=== PATIENT | male | born 1980 | race Two or more races ===

== ENCOUNTER 2019-05-26 22:26 | Emergency (ER) | payer SELFPAY ==
[~2019-05-26] VITALS: Ht 180.3 cm; Wt 107.0 kg
[2019-05-26] MEDS ORDERED: ONDANSETRON HCL/PF 4 MG/2 ML VIAL IM ONE (23:00)
[2019-05-26] MEDS ORDERED: ONDANSETRON HCL/PF 4 MG/2 ML VIAL ONE (23:05)
--- NOTE | 2019-05-26 23:26 | NUR ---
ALBERT AND COWORKER TO ER BED 11. INTOXICATED. PER REPORTS, PT WAS IN HIS WORK HOLIDAY DEMOCRAT AND HAVE BEEN DRINKING. PT IS NOT A DRINKER USUALLY. PT NOTED X 1 EIPOSE OF VOMMITING. MD WAS AT BEDSIDE FOR EVAL. ORDERS RECEIVED, NOTED AND CARRIED OUT. SISTER AT BEDSIDE
--- NOTE | 2019-05-27 00:41 | NUR ---
PT IN BED SLEEPING. SITTER AT BEDSIDE
--- NOTE | 2019-05-27 03:17 | NUR ---
PT IN BED SLEEPING, ARROUSABLE, STILL INTOXICATED AND GIVEN WATER.
--- NOTE | 2019-05-27 05:06 | NUR ---
SISTER PICKED UP PT
--- NOTE | 2019-05-27 05:07 | NUR ---
Patient discharged to home in stable condition. Written and verbal after care instructions given. Patient verbalizes understanding of instruction. Pt ambulatory with a steady gait
[2019-05-27 05:48] VITALS: BP 123/91
== END 2019-05-27 05:49 | disposition home or self-care (01) ==
LOC: ER 22:26
DX: F10.129 Alcohol abuse with intoxication, unspecified (principal); Y90.9 Presence of alcohol in blood, level not specified
CPT/HCPCS: 82962; 96372; 99283; J2405